=== PATIENT | female | born 1980 | race Hispanic/Latino ===

== ENCOUNTER 2018-02-14 20:59 | Emergency (ER) | payer BC ==
--- NOTE | 2018-02-14 22:06 | RAD ---
RIGHT KNEE FOUR VIEWS: 02/14/18 HISTORY: Patient fell. Posttraumatic pain. COMPARISON: 12/23/07. FINDINGS: No joint effusion. Joint spaces are preserved. No fracture. No malalignment. IMPRESSION: No posttraumatic change. POS: PPP
--- NOTE | 2018-02-14 22:07 | RAD ---
RIGHT THUMB THREE VIEWS: 02/14/18 HISTORY: Fall. Pain. COMPARISON: None. FINDINGS: Joint space is preserved. No fracture. No cortical irregularity. No periosteal reaction. IMPRESSION: Unremarkable right thumb three views. POS: PPP
== END 2018-02-14 22:29 | disposition home or self-care (01) ==
LOC: ERS 20:59
DX: S60.011A Contusion of right thumb without damage to nail, initial encounter (principal); S80.01XA Contusion of right knee, initial encounter; E11.9 Type 2 diabetes mellitus without complications; E78.5 Hyperlipidemia, unspecified; W01.0XXA Fall on same level from slipping, tripping and stumbling without subsequent striking against object, initial encounter

== ENCOUNTER 2023-12-28 11:21 | Outpatient (CLI) | payer BC | END 2023-12-28 11:22 | disposition home or self-care (01) | LOC: ULT 11:21 | PROVIDERS: ATTEND Specialist | DX: R10.9 Unspecified abdominal pain (principal); K80.20 Calculus of gallbladder without cholecystitis without obstruction; K76.0 Fatty (change of) liver, not elsewhere classified | CPT/HCPCS: 76705 ==